=== PATIENT | male | born 1980 | race Two or more races ===

== ENCOUNTER 2021-04-05 20:17 | Emergency (ER) | payer OTHER ==
[~2021-04-05] VITALS: Ht 175.3 cm; Wt 81.8 kg
[2021-04-05 21:53] LABS: COVID AG,FIA SOURCE NASOPHARYNGEAL
[2021-04-05] MEDS ORDERED: DOXYCYCLINE HYCLATE 100 MG TABLET PO ONE (23:00)
[2021-04-05] MEDS ORDERED: LIDOCAINE/PF 1% 2 ML VIAL IM ONE (23:00)
[2021-04-05] MEDS ORDERED: ACETAMINOPHEN 325 MG TABLET PO ONE (23:00)
[2021-04-05] MEDS: CefTRIAXone SODIUM 1 GM/VIAL IM ONE ×2 (23:50→23:58)
[2021-04-05 23:59] VITALS: BP 127/72
== END 2021-04-06 02:00 | disposition home or self-care (01) ==
LOC: EMS 20:31
DX: B34.9 Viral infection, unspecified (principal); A64 Unspecified sexually transmitted disease; M79.10 Myalgia, unspecified site; Z20.822 Contact with and (suspected) exposure to COVID-19
CPT/HCPCS: 87426; 87491; 87591; 96372; 99283; J0696; J3490; U0003